=== PATIENT | male | born 1975 | race Caucasian/White ===

== ENCOUNTER 2019-11-14 07:47 | Emergency (ER) | payer MEDICAID ==
[~2019-11-14] VITALS: Ht 198.1 cm; Wt 89.8 kg
[2019-11-14 07:59] VITALS: BP 120/53
--- NOTE | 2019-11-14 08:05 | NUR ---
Patient ambulated to bed 5 with family. RN evaluating patient at bedside.
--- NOTE | 2019-11-14 08:13 | NUR ---
44 Y/O M C/O COUGH, FEVER, NAUSEA X3 DAYS. PT STATES SYMPTOMS HAVE NOT GOTTEN BETTER WITH OVER THE COUNTER MEDICINE. PT STATES HE BEGAN HAVING BLURY VISSION YESTERDAY, NEUROLOGICAL EXAM NORMAL, EYES PERRLA, HAND RECYCLING OPERATOR EQUAL BILATERALY. PT POSITIONED FOR COMFORT, BED LOWERED, X2 SIDE RAIL IN PLACE, AT BEDSIDE.
--- NOTE | 2019-11-14 08:31 | NUR ---
Dr. uFchs is evaluating the patient at bedside.
[2019-11-14] MEDS ORDERED: predniSONE 20 MG TAB PO ONE (08:35)
[2019-11-14] MEDS ORDERED: hydrOXYzine HCL 25 MG TAB PO ONE (08:35)
[2019-11-14] MEDS ORDERED: ALBUTEROL SULFATE/IPRATROPIU 3 ML SOL IH ONE (08:35)
[2019-11-14] MEDS ORDERED: PROMETHAZINE 25 MG/ML VIAL IM ONE (08:35)
[2019-11-14] MEDS ORDERED: cefTRIAXone 1,000 MG in LIDOCAINE MPF 1% 2.1 ML IM ONE (08:35)
[2019-11-14] MEDS ORDERED: cefTRIAXone 1,000 MG VIAL ONE (08:40)
[2019-11-14] MEDS ORDERED: LIDOCAINE MPF 1% 5 ML ONE (08:40)
--- NOTE | 2019-11-14 08:41 | NUR ---
Breathing treatment administered by respiratory therapist at bedside.
--- NOTE | 2019-11-14 08:42 | NUR ---
INFLUENZA SWAB PERFORMED BY ACC STUDENT, GIVEN TO LAB.
--- NOTE | 2019-11-14 08:42 | NUR ---
RT AT BEDSIDE.
--- NOTE | 2019-11-14 09:21 | NUR ---
PT STATES HE FEELS BETTER AFTER BREATHING TREATMENT AND MEDICATION, ABLE TO TAKE DEEPER BREATHS. PT INFORMED WE ARE WAITING FOR TEST RESULTS TO COME IN. PT POSITIONED FOR COMFORT, FAMILY AT BEDSIDE.
--- NOTE | 2019-11-14 10:11 | NUR ---
Adams huber in EDM - 11/14/19 at [address] [facility] INFORMED MOTHER OF PT THAT WE ARE WAITING FOR RSV/FLU SWAB TEST. PT SLEEPING IN MOTHER'S ARMS.
[2019-11-14 10:54] VITALS: BP 120/53
--- NOTE | 2019-11-14 10:55 | NUR ---
Patient discharged with v/s stable. Written and verbal after care instructions given and explained. Patient alert, oriented and verbalized understanding of instructions. Ambulatory with steady gait. All questions addressed prior to discharge. ID band removed. Patient advised to follow up with PMD. Rx of AZITHROMYCIN, PROMETHAZINE given. Patient educated on indication of medication including possible reaction and side effects. Opportunity to ask questions provided and answered.
== END 2019-11-14 10:55 | disposition home or self-care (01) ==
LOC: MED 07:47
DX: J40 Bronchitis, not specified as acute or chronic (principal); J32.9 Chronic sinusitis, unspecified
CPT/HCPCS: 81002; 87804; 94640; 96372; 99283; J0696; J2001; J2550; J7512; J7620